=== PATIENT | female | born 1980 | race Caucasian/White ===

== ENCOUNTER 2021-05-21 20:44 | Emergency (ER) | payer OTHER ==
--- NOTE | 2021-05-21 22:31 | ERPHSYRPT ---
- History of Present Illness Time Seen by Provider: 05/21/21 21:59 Source: patient Exam Limitations: no limitations Patient Subjective Stated Complaint: pt state "I just don't feel good." Triage Nursing Assessment: pt ambulated into the er; pt is axo x4; c/o "not feeling well."; c/o cough, chills; pt states she had a fever at home but unsure of tempature because she did not check it; no cough present at assessment; pt states she is coughing of thick yellow sputum; lung sounds clear in all lobes; O2 99% on room air; afebrile at 98.5; clear heart tones; hypertensive Physician History: 40 years old on vaccinated against COVID-19 presented in the ER with 2 days history of flulike symptoms. Patient reports low-grade fever chills, body aches, mild to moderate dry cough without any shortness of breath. No abdominal pain nausea or vomiting. Timing/Duration: day(s) (2), intermittent, gradual onset, worse Cough Quality/Degree: mild, moderate, dry cough Possible Cause: unknown cause Associated Symptoms: fever, chills, cough, headache, lightheadedness, muscle aches, nasal congestion, sore throat Allergies/Adverse Reactions: No Known Drug Allergies Allergy (Unverified 05/21/21 22:03) Home Medications: No Reportable Medications [No Reported Medications] 05/21/21 [History] Hx Tetanus, Diphtheria Vaccination/Date Given: No Hx Influenza Vaccination/Date Given: No Hx Pneumococcal Vaccination/Date Given: No Travel Risk - International Travel Have you traveled outside of the country in past 3 weeks: No - Coronavirus Screening Are you exhibiting any of the following symptoms?: Yes Symptoms: Fever, Cough: New Onset, Shortness of Breath, Headaches/Body Aches/Fatigue Close contact with a COVID-19 positive Pt in past 14-21 Days: No - Vaccine Status Have you recieved a Covid-19 vaccination: No - Review of Systems Constitutional: Fever, Chills, Fatigue, Weakness Eyes: No Symptoms Ears, Nose, & Throat: Nose Congestion Respiratory: Cough Cardiac: No Symptoms Abdominal/Gastrointestinal: No Symptoms Genitourinary Symptoms: No Symptoms Musculoskeletal: No Symptoms Neurological: No Symptoms Psychological: No Symptoms Endocrine: No Symptoms Hematologic/Lymphatic: No Symptoms Immunological/Allergic: No Symptoms - Past Medical History Pertinent Past Medical History: No - Past Surgical History Past Surgical History: Yes Female Surgical History: Tubal Ligation - Social History Smoking Status: Current every day smoker Exposure to second hand smoke: Yes Drug Use: none Patient Lives Alone: No - Female History Hx Now: No - Nursing Vital Signs Nursing Vital Signs: Initial Vital Signs Temperature 98.5 F 05/21/21 22:05 Pulse Rate 94 H 05/21/21 22:05 Respiratory Rate 16 05/21/21 22:05 Blood Pressure 144/93 05/21/21 22:05 O2 Sat by Pulse Oximetry 100 05/21/21 22:05 Pain Scale Pain Intensity 0 - Physical Exam General Appearance: no apparent distress, alert Eye Exam: PERRL/EOMI, eyes nml inspection Ears, Nose, Throat Exam: TMs normal, pharyngeal erythema Neck Exam: normal inspection, non-tender, supple, full range of motion Respiratory Exam: normal breath sounds, lungs clear Cardiovascular Exam: regular rate/rhythm, normal heart sounds Gastrointestinal/Abdomen Exam: soft, normal bowel sounds Back Exam: normal inspection, normal range of motion Extremity Exam: normal inspection, normal range of motion Neurologic Exam: alert, oriented x 3, cooperative Skin Exam: normal color SpO2 Interpretation: normal SpO2: 100 O2 Delivery: Room Air Ordered Tests: Active Orders 24 hr Category Date Time Status CHEST 1 VIEW (PORTABLE) Stat Exams 05/21/21 22:19 Taken - Progress Progress: re-examined Air Movement: good Progress Note: 05/21/21 23:28 Chest x-ray negative for any acute cardiopulmonary findings reviewed by me, official report is pending. Patient is maintaining oxygen saturation around 98% on room air. No signs of distress. Covid testing is obtained. Patient on reevaluation feeling better and does not want to wait for the paperwork. Verbal instructions given about precautions and outpatient follow-up and prompt return to ER for worsening. 05/21/21 23:29 Blood Culture(s) Obtained: No Antibiotics given: No Counseled pt/family regarding: diagnosis, need for follow-up, rad results, smoking cessation - Departure Departure Disposition: Home Clinical Impression: Viral syndrome Condition: Stable Critical Care Time: No Referrals: DOCTOR,NO FAMILY [Primary Care Provider] -
[2021-05-21 23:36] VITALS: BP 123/73; PULSE 88; O2SAT 99
--- NOTE | 2021-05-22 09:03 | XRAY ---
Indication: Suspect Covid 19. Comparison: None Portable chest demonstrates normal heart, lungs, and bony thorax.
== END 2021-05-21 23:37 | disposition home or self-care (01) ==
LOC: ED 20:44
DX: B34.9 Viral infection, unspecified (principal); R50.9 Fever, unspecified; R05 Cough; R51.9 Headache, unspecified; R42 Dizziness and giddiness; R53.83 Other fatigue
CPT/HCPCS: 71045; 99284; U0003

== ENCOUNTER 2021-11-18 20:59 | Emergency (ER) | payer OTHER ==
--- NOTE | 2021-11-18 21:09 | ERPHSYRPT ---
- History of Present Illness Time Seen by Provider: 11/18/21 21:08 Historian: patient Exam Limitations: no limitations Physician History: This is a 41-year-old white female who states that a week ago she was doing a lot of heavy lifting and she feels like she pulled a muscle in her back and abdominal wall. She then stated that she rested for a period of time and then this morning she was playing with her dog and doing yard work where she was lifting bending twisting frequently. She then started having pain in the back and in the abdominal wall as well. She is had no nausea vomiting or diarrhea. 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 She has no known drug allergies. She takes no medications chronically. Timing/Duration: today Quality: aching Abdominal Pain Onset Location: generalized abdomen Pain Radiation: no radiation Severity of Pain-Max: mild (To moderate) Severity of Pain-Current: mild (To moderate) Allergies/Adverse Reactions: No Known Drug Allergies Allergy (Verified 11/18/21 21:17) Hx Tetanus, Diphtheria Vaccination/Date Given: No Hx Influenza Vaccination/Date Given: No Hx Pneumococcal Vaccination/Date Given: No Travel Risk - International Travel Have you traveled outside of the country in past 3 weeks: No - Coronavirus Screening Are you exhibiting any of the following symptoms?: No Close contact with a COVID-19 positive Pt in past 14-21 Days: No - Vaccine Status Have you recieved a Covid-19 vaccination: No - Review of Systems Constitutional: No Symptoms Eyes: No Symptoms Ears, Nose, & Throat: No Symptoms Respiratory: No Symptoms Cardiac: No Symptoms Abdominal/Gastrointestinal: Abdominal Pain (Superficial abdominal wall pain), No Nausea, No Vomiting Genitourinary Symptoms: No Symptoms Musculoskeletal: Other (Abdominal wall pain) Skin: No Symptoms Neurological: No Symptoms Psychological: No Symptoms Endocrine: No Symptoms Hematologic/Lymphatic: No Symptoms Immunological/Allergic: No Symptoms All Other Systems: Reviewed and Negative - Past Medical History Pertinent Past Medical History: No - Past Surgical History Past Surgical History: Yes Female Surgical History: Tubal Ligation - Social History Smoking Status: Current every day smoker Exposure to second hand smoke: Yes Drug Use: none Patient Lives Alone: No - Nursing Vital Signs Nursing Vital Signs: Initial Vital Signs Temperature 98.7 F 11/18/21 21:00 Pulse Rate 120 H 11/18/21 21:00 Respiratory Rate 20 11/18/21 21:00 Blood Pressure 164/120 11/18/21 21:00 O2 Sat by Pulse Oximetry 100 11/18/21 21:00 Pain Scale Pain Intensity 8 - Physical Exam General Appearance: no apparent distress, alert, anxiety Eye Exam: PERRL/EOMI, eyes nml inspection Ears, Nose, Throat Exam: normal ENT inspection, moist mucous membranes Neck Exam: normal inspection, non-tender, supple, full range of motion Respiratory Exam: normal breath sounds, lungs clear, airway intact, No chest tenderness, No respiratory distress Cardiovascular Exam: tachycardia (Mild) Gastrointestinal/Abdomen Exam: soft, normal bowel sounds, tenderness, other (I was able to perform deep palpation without eliciting guarding or rebound), No guarding (Mild to palpation generalized), No rebound Pelvic Exam: not done Rectal Exam: not done Back Exam: normal inspection, normal range of motion, No CVA tenderness, No vertebral tenderness Extremity Exam: normal inspection, normal range of motion, pelvis stable Neurologic Exam: alert, oriented x 3, cooperative, hospice nurse II-XII nml as tested, normal mood/affect, nml cerebellar function, nml station & gait Skin Exam: normal color, warm, dry Lymphatic Exam: No adenopathy SpO2 Interpretation: normal O2 Delivery: Room Air - Course Nursing assessment & vital signs reviewed: Yes - Progress Progress: improved, pain not gone completely Counseled pt/family regarding: diagnosis, need for follow-up - Departure Departure Disposition: Home Clinical Impression: Abdominal wall pain Condition: Stable Critical Care Time: No Referrals: DOCTOR,NO FAMILY [Primary Care Provider] - Follow up/PCP as directed Additional Instructions: Take your medication as prescribed. Follow-up with your primary care provider for further evaluation and management. Stop using methamphetamines Prescriptions: Prednisone 10 mg [Deltasone 10 mg] 10 mg PO TID #12 tablet Orphenadrine Citrate 100 mg [Norflex 100 MG Tablet] 100 mg PO BID #10 tab
[2021-11-18] MEDS ORDERED: solu-MEDROL 125 MG, Sterile H2O 10 ml 2 ML IV ONE ×2 (21:35)
[2021-11-18] MEDS ORDERED: Norflex 60 MG/2 ML IV ONE (21:35)
[2021-11-18] MEDS ORDERED: NORCO 5/325 MG PO ONE (21:35)
[2021-11-18] MEDS ORDERED: Sterile H2O 10 ml IJ ONE (21:41)
[2021-11-18] MEDS ORDERED: Norflex 60 MG/2 ML ONE (21:42)
[2021-11-18] MEDS ORDERED: solu-MEDROL ONE (21:42)
[2021-11-18] MEDS ORDERED: NORCO 5/325 MG ONE (21:42)
[2021-11-18 21:43] VITALS: BP 137/83; PULSE 106; O2SAT 99
== END 2021-11-18 21:55 | disposition home or self-care (01) ==
LOC: ED 20:59
DX: R10.84 Generalized abdominal pain (principal); M54.50 Low back pain, unspecified; Z72.0 Tobacco use; Z79.52 Long term (current) use of systemic steroids
CPT/HCPCS: 36000; 96374; 96375; 99284; J2360; J2930; A9270-GY

== ENCOUNTER 2022-05-26 23:04 | Emergency (ER) | payer OTHER ==
[2022-05-26] MEDS ORDERED: Sodium Chloride 0.9% 1000 ML 1,000 ML IV STA (23:35)
--- NOTE | 2022-05-27 | ERPHSYRPT ---
- History of Present Illness Time Seen by Provider: 05/26/22 23:28 Source: patient Exam Limitations: no limitations Patient Subjective Stated Complaint: pt states she was working in the yard and states that she was moving heavy objects like wood, and has pain in her upper body at this time that she rates as 10/10 Triage Nursing Assessment: pt is alert and oriented, ealled back to room holding abdomen and stating that her whole upper body hurtas and that she overdid it working in her yard, pt is moaning in bed and moving from side to side. Physician History: 41-year-old female presented in ER with chief complaint of generalized body ache fatigue tiredness. Patient reports she was working outside in the yard and she probably overdid it. Patient reports having progressively worsening pain all over especially in the upper body with some nausea. It hurts to move arms legs, back moderate to severe sharp. Timing/Duration: day(s) (2), constant, gradual onset, worse Severity: moderate, severe Modifying Factors: Worsens With: movement Associated Symptoms: nausea, abdominal pain, malaise, No vomiting, No shortness of breath, No heartburn, No diaphoresis, No cough, No chills, No chest pain, No fever, No headaches, No loss of appetite, No syncope, No seizure, No weakness Allergies/Adverse Reactions: No Known Drug Allergies Allergy (Verified 11/18/21 21:17) Hx Tetanus, Diphtheria Vaccination/Date Given: No Hx Influenza Vaccination/Date Given: No Hx Pneumococcal Vaccination/Date Given: No Travel Risk - International Travel Have you traveled outside of the country in past 3 weeks: No - Coronavirus Screening Are you exhibiting any of the following symptoms?: No Close contact with a COVID-19 positive Pt in past 14-21 Days: No - Vaccine Status Have you recieved a Covid-19 vaccination: No - Review of Systems Constitutional: Fatigue, Weakness Eyes: No Symptoms Ears, Nose, & Throat: No Symptoms Respiratory: No Symptoms Cardiac: Chest Pain Abdominal/Gastrointestinal: Abdominal Pain Genitourinary Symptoms: No Symptoms Musculoskeletal: Myalgias Neurological: No Symptoms Psychological: No Symptoms Endocrine: No Symptoms Hematologic/Lymphatic: No Symptoms Immunological/Allergic: No Symptoms - Past Medical History Pertinent Past Medical History: No Neurological History: Migraines ENT History: No Pertinent History Cardiac History: No Pertinent History Respiratory History: No Pertinent History Endocrine Medical History: No Pertinent History Musculoskeletal History: Fibromyalgia GI Medical History: GERD History: No Pertinent History Psycho-Social History: Anxiety, Depression Female Reproductive Disorders: No Pertinent History - Past Surgical History Past Surgical History: Yes Female Surgical History: Tubal Ligation - Social History Smoking Status: Current every day smoker How long have you smoked: 22 yrs Exposure to second hand smoke: Yes Drug Use: none Patient Lives Alone: No - Female History Hx Last Menstrual Period: 05/12/22 Hx Now: No - Nursing Vital Signs Nursing Vital Signs: Initial Vital Signs Temperature 98.3 F 05/26/22 23:13 Pulse Rate 74 05/26/22 23:13 Respiratory Rate 20 05/26/22 23:13 Blood Pressure 178/126 05/26/22 23:13 O2 Sat by Pulse Oximetry 98 05/26/22 23:13 Pain Scale Pain Intensity 5 - Physical Exam General Appearance: no apparent distress, alert Eye Exam: PERRL/EOMI, eyes nml inspection Ears, Nose, Throat Exam: normal ENT inspection, TMs normal, pharynx normal, moist mucous membranes Neck Exam: normal inspection, non-tender, supple, full range of motion Respiratory Exam: normal breath sounds, lungs clear Cardiovascular Exam: regular rate/rhythm, normal heart sounds Gastrointestinal/Abdomen Exam: soft, normal bowel sounds, No tenderness, No distention Back Exam: normal inspection, normal range of motion Extremity Exam: normal inspection, normal range of motion, pelvis stable Neurologic Exam: alert, oriented x 3, cooperative Skin Exam: normal color SpO2 Interpretation: normal SpO2: 98 O2 Delivery: Room Air Ordered Tests: Active Orders 24 hr Category Date Time Status IV Insertion STAT Care 05/26/22 23:35 Active CULTURE,URINE Stat Lab 05/27/22 01:12 Received UA W/RFX CULTURE Stat Lab 05/27/22 01:12 Completed Medication Summary Discontinued Medications Generic Name Dose Route Start Last Admin Trade Name Jeremy PRN Reason Stop Dose Admin Acetaminophen 975 mg 05/27/22 00:04 05/27/22 00:14 Acetaminophen 325 Mg Tablet PO 05/27/22 00:05 975 mg STAT ONE Administration Acetaminophen Confirm 05/27/22 00:13 Acetaminophen 325 Mg Tablet Administered 05/27/22 00:14 Dose 975 mg .ROUTE .STK-MED ONE Cephalexin HCl 500 mg 05/27/22 01:27 05/27/22 01:36 Cephalexin Mh500 Mg Capsule PO 05/27/22 01:28 500 mg STAT ONE Administration Sodium Chloride 1,000 mls @ 999 mls/hr 05/26/22 23:35 05/27/22 00:10 Sodium Chloride 0.9% 1000 Ml IV 05/27/22 00:35 999 mls/hr .Q1H1M STA Administration Sodium Chloride Confirm 05/27/22 00:05 Sodium Chloride 0.9% 1000 Ml Administered 05/27/22 00:06 Dose 1,000 mls @ ud .ROUTE .STK-MED ONE Morphine Sulfate 4 mg 05/27/22 00:04 05/27/22 00:15 Morphine Sulfate 4 Mg/Ml Injection IV 05/27/22 00:05 4 mg STAT ONE Administration Morphine Sulfate Confirm 05/27/22 00:13 Morphine Sulfate 4 Mg/Ml Injection Administered 05/27/22 00:14 Dose 4 mg .ROUTE .STK-MED ONE Ondansetron HCl 4 mg 05/27/22 00:04 05/27/22 00:15 Ondansetron Hcl 4 Mg/2 Ml Vial IV 05/27/22 00:05 4 mg STAT ONE Administration Ondansetron HCl Confirm 05/27/22 00:13 Ondansetron Hcl 4 Mg/2 Ml Vial Administered 05/27/22 00:14 Dose 4 mg .ROUTE .STK-MED ONE Orphenadrine Citrate 60 mg 05/27/22 00:04 05/27/22 00:14 Orphenadrine Citrate 60 Mg/2 Ml Vial IV 05/27/22 00:05 60 mg STAT ONE Administration Orphenadrine Citrate Confirm 05/27/22 00:13 Orphenadrine Citrate 60 Mg/2 Ml Vial Administered 05/27/22 00:14 Dose 60 mg .ROUTE .STK-MED ONE Lab/Rad Data: Laboratory Result Diagrams 05/26/22 00:09 05/26/22 00:09 Laboratory Results 05/27/22 05/26/22 05/26/22 Range/Units 01:12 00:09 00:09 WBC 13.3 H (4.0-10.5) x10^3/uL RBC 5.01 (4.1-5.4) x10^6/uL Hgb 15.0 (12.0-16.0) g/dL Hct 46.0 (35-47) % MCV 91.8 (78-100) fL MCH 29.9 (26-32) pg MCHC 32.6 (32-36) g/dL RDW 12.7 (11.5-14.0) % Plt Count 387 (150-450) x10^3/uL MPV 8.2 (7.5-11.0) fL Gran % 79.0 H (36.0-66.0) % Immature Gran % (Auto) 0.2 (0.00-0.4) % Nucleat RBC Rel Count 0.0 (0.00-0.1) % Eos # (Auto) 0.06 (0-0.5) x10^3/uL Immature Gran # (Auto) 0.03 (0.00-0.03) x10^3u/L Absolute Lymphs (auto) 1.82 (1.0-4.6) x10^3/uL Absolute Monos (auto) 0.81 (0.0-1.3) x10^3/uL Absolute Nucleated RBC 0.00 (0.00-0.01) x10^3u/L Lymphocytes % 13.7 L (24.0-44.0) % Monocytes % 6.1 (0.0-12.0) % Eosinophils % 0.5 (0.00-5.0) % Basophils % 0.5 (0.0-0.4) % Absolute Granulocytes 10.54 H (1.4-6.9) x10^3/uL Basophils # 0.07 (0-0.4) x10^3/uL Sodium 139 (137-145) mmol/L Potassium 3.8 (3.5-5.1) mmol/L Chloride 104 (98-107) mmol/L Carbon Dioxide 24 (22-30) mmol/L Anion Gap 15.0 (5-15) MEQ/L BUN 14 (7-17) mg/dL Creatinine 0.87 (0.52-1.04) mg/dL Estimated GFR > 60.0 ML/MIN Glucose 124 H (74-106) mg/dL Calcium 10.1 (8.4-10.2) mg/dL Total Bilirubin 0.80 (0.2-1.3) mg/dL AST 24 (14-36) U/L ALT 18 (0-35) U/L Alkaline Phosphatase 94 (38-126) U/L Creatine Kinase 59 (30-135) U/L Serum Total Protein 8.4 H (6.3-8.2) g/dL Albumin 4.8 (3.5-5.0) g/dL Urinalys Dipstick Clnc MAIN LAB Urine Color DARK YELLOW (YELLOW) Urine Appearance SLIGHTLY CLOUDY (CLEAR) Urine pH 6.0 (5-6) Ur Specific Gray 1.025 (1.005-1.025) POC Urine Protein Conf 100 (Negative) Urine Ketones NEGATIVE (NEGATIVE) Urine Nitrite POSITIVE (NEGATIVE) Urine Bilirubin NEGATIVE (NEGATIVE) Urine Urobilinogen 0.2 (0-1) mg/dL Urine Leukocytes SMALL (NEGATIVE) Urine WBC (Auto) 16-25 (0-5) /HPF Urine RBC (Auto) 6-10 (0-2) /HPF U Epithel Cells (Auto) RARE (FEW) /HPF Urine Bacteria (Auto) PACKED (NEGATIVE) /HPF Urine RBC SMALL (0-5) Herb/ul Urine Mucus (Auto) MANY (NEGATIVE) /HPF Ur Culture Indicated? YES Urine Glucose NEGATIVE (NEGATIVE) mg/dL - Progress Progress: improved Progress Note: 05/27/22 01:28 She is given fluids and symptomatic treatment, on reevaluation feeling better. Has a white count of 13, grossly unremarkable chemistries. Does have UTI and started on Keflex. Patient does not have rhabdo. Recommended Tylenol/ibuprofen to go home and outpatient follow-up. Discussed signs symptoms of worsening needing return to ER which he seems understanding. Stable for discharge. Counseled pt/family regarding: lab results, diagnosis, need for follow-up - Departure Departure Disposition: Home Clinical Impression: Myalgia, Generalized body aches, Acute UTI Condition: Stable Critical Care Time: No Referrals: DOCTOR,NO FAMILY [Primary Care Provider] - Follow up/PCP as directed JENNYFER WINCHESTER DO [ACTIVE STAFF] - Follow Up with PCP/3 days Instructions: Muscle and Bone Pain (DC) Additional Instructions: Drink plenty of fluids. Take Tylenol as needed. Follow-up with primary care for reevaluation. Return to ER for any worsening. Prescriptions: Ibuprofen 600 mg PO Q6HPRN PRN 10 Days #20 tablet PRN Reason: Pain Cephalexin Mh 500 mg [Keflex 500 mg] 500 mg PO TID #21 cap
[2022-05-27] MEDS ORDERED: TYLENOL 325 MG PO ONE (00:04)
[2022-05-27] MEDS ORDERED: Norflex 60 MG/2 ML IV ONE (00:04)
[2022-05-27] MEDS ORDERED: Zofran 4 MG/2 ML VIAL IV ONE (00:04)
[2022-05-27] MEDS ORDERED: MORPHINE SULFATE 4 MG INJ IV ONE (00:04)
[2022-05-27] MEDS ORDERED: Sodium Chloride 0.9% 1000 ML 1,000 ML ONE (00:05)
[2022-05-27 00:11] LABS: Absolute Neutrophil Ct (ANC) 10.54 x10^3/uL (1.4-6.9); Basophil (Absolute #) 0.07 x10^3/uL (0-0.4); Eosinophil % 0.5 % (0.00-5.0); Eosinophil (Absolute #) 0.06 x10^3/uL (0-0.5); Lymphocyte (Absolute #) 1.82 x10^3/uL (1.0-4.6); Lymphocytes % 13.7 % (24.0-44.0); Mean Cell Volume 91.8 fL (78-100); Mean Corpuscular Hemoglobin 29.9 pg (26-32); Mean Corpuscular Hgb Concent. 32.6 g/dL (32-36); Mean Platelet Volume 8.2 fL (7.5-11.0); Monocyte (Absolute #) 0.81 x10^3/uL (0.0-1.3); Monocytes % 6.1 % (0.0-12.0); Platelet Count 387 x10^3/uL (150-450); Red Blood Count 5.01 x10^6/uL (4.1-5.4); Red Cell Distribution Width 12.7 % (11.5-14.0); White Blood Count 13.3 x10^3/uL (4.0-10.5)
[2022-05-27] MEDS ORDERED: Norflex 60 MG/2 ML ONE (00:13)
[2022-05-27] MEDS ORDERED: TYLENOL 325 MG ONE (00:13)
[2022-05-27] MEDS ORDERED: Zofran 4 MG/2 ML VIAL ONE (00:13)
[2022-05-27] MEDS ORDERED: MORPHINE SULFATE 4 MG INJ ONE (00:13)
[2022-05-27 00:41] LABS: ALBUMIN 4.8 g/dL (3.5-5.0); ALKALINE PHOSPHATASE 94 U/L (38-126); BLOOD UREA NITROGEN 14 mg/dL (7-17); CHLORIDE 104 mmol/L (98-107); CK-Creatinine Phosphokinase 59 U/L (30-135); Calcium 10.1 mg/dL (8.4-10.2); Carbon Dioxide 24 mmol/L (22-30); Creatinine 1 0.87 mg/dL (0.52-1.04); EST GLOMERULAR FILTRATION RATE > 60.0 ML/MIN; Glucose 124 mg/dL (74-106); Potassium 3.8 mmol/L (3.5-5.1); SGOT/AST 24 U/L (14-36); SGPT/ALT 18 U/L (0-35); SODIUM 139 mmol/L (137-145); Total Protein 8.4 g/dL (6.3-8.2)
[2022-05-27 01:05] VITALS: BP 206/137; PULSE 99
[2022-05-27 01:22] LABS: Appearance SLIGHTLY CLOUDY (CLEAR); Bilirubin NEGATIVE (NEGATIVE); Glucose NEGATIVE (NEGATIVE); Ketones NEGATIVE (NEGATIVE); Nitrite POSITIVE (NEGATIVE); Protein,Urine Dip 100 (Negative); RBC SMALL Ery/ul (0-5); Specific Gravity 1.025 (1.005-1.025); Urobilinogen 0.2 mg/dL (0-1)
[2022-05-27 01:23] LABS: Dipstick done @ ? MAIN LAB
[2022-05-27 01:24] LABS: Bacteria PACKED /HPF (NEGATIVE); Epithelial Cells RARE /HPF (FEW); Mucus MANY /HPF (NEGATIVE); Urine Cultured Indicated? YES
[2022-05-27] MEDS ORDERED: KEFLEX 500 MG PO ONE (01:27)
[2022-05-27 01:29] VITALS: O2SAT 98
[2022-05-27] MEDS ORDERED: KEFLEX 500 MG ONE (01:35)
[2022-05-27] MEDS ORDERED: MOTRIN 600 MG PO ONE (01:37)
[2022-05-27] MEDS ORDERED: MOTRIN 600 MG ONE (01:38)
== END 2022-05-27 01:50 | disposition home or self-care (01) ==
LOC: ED 23:04
DX: N39.0 Urinary tract infection, site not specified (principal); M79.10 Myalgia, unspecified site; R53.83 Other fatigue; R11.0 Nausea; Z72.0 Tobacco use; Z28.310 Unvaccinated for COVID-19
CPT/HCPCS: 36000; 36415; 80053; 81015; 82550; 85025; 87077; 87086; 87186; 96360; 96374; 96375; 99284; J2270; J2360; J2405; A9270-GY

== ENCOUNTER 2024-10-26 12:28 | Emergency (ER) | payer OTHER ==
[2024-10-26 12:38] VITALS: RESP 22; TEMP 98.1
--- NOTE | 2024-10-26 12:59 | ERPHSYRPT ---
- History of Present Illness Time Seen by Provider: 10/26/24 12:36 Source: patient Exam Limitations: no limitations Patient Subjective Stated Complaint: Pt states "I was taking care of a family member yesterday who was sick and now he gave it to me. I have a cough, fever, my legs hurt." Triage Nursing Assessment: Pt presnted alert and oriented X 3, skin pwd. Pt ambulates with an upright steady gait, able to speak in clear full sentences. Pt resting comfortably on the bed. Physician History: 44-year-old with history of tobacco use presented in the ER with flulike symptoms since this morning. Patient reports her son had similar symptoms yesterday. Patient reports minimal productive cough, aches and pains all over, subjective feeling of fever and chills. Feeling fatigued tired. No abdominal pain nausea or vomiting. Allergies/Adverse Reactions: No Known Drug Allergies Allergy (Verified 11/18/21 21:17) Home Medications: No Reportable Medications [No Reported Medications] 10/26/24 [History] Hx Tetanus, Diphtheria Vaccination/Date Given: No Hx Influenza Vaccination/Date Given: No Hx Pneumococcal Vaccination/Date Given: No Immunizations Up to Date: No Travel Risk - International Travel Have you traveled outside of the country in past 3 weeks: No - Emerging Infectious Disease Are you exhibiting symptoms associated with any current EIDs: Yes Symptoms: Cough: New Onset, Headaches/Body Aches/ - Review of Systems Constitutional: Fever, Fatigue, Weakness Eyes: No Symptoms Ears, Nose, & Throat: No Symptoms Respiratory: Cough Cardiac: No Symptoms Abdominal/Gastrointestinal: No Symptoms Genitourinary Symptoms: No Symptoms Musculoskeletal: Myalgias Skin: No Symptoms Neurological: Headache Psychological: No Symptoms Endocrine: No Symptoms - Past Medical History Pertinent Past Medical History: Yes Neurological History: Migraines ENT History: No Pertinent History Cardiac History: No Pertinent History Respiratory History: No Pertinent History Endocrine Medical History: No Pertinent History Musculoskeletal History: Fibromyalgia GI Medical History: GERD History: No Pertinent History Psycho-Social History: Anxiety, Depression Female Reproductive Disorders: No Pertinent History - Past Surgical History Past Surgical History: Yes Gastrointestinal: Cholecystectomy Female Surgical History: Tubal Ligation - Female History Hx Last Menstrual Period: 10/05/2024 Hx Now: No - Social History Smoking Status: Current every day smoker How long have you smoked: 22 yrs Exposure to second hand smoke: Yes Drug Use: none Patient Lives Alone: No - Social Determinants of Health Will the patient participate in the screening: Yes Do you worry about a steady place to live?: Yes Do you have any problems with any of the following?: No known problems In the past 12 months,have you had to go without utilities?: No Transportation Issues: Yes Has anyone in your support network made you feel unsafe?: No Have you or anyone in your house had to go without enough: No - Nursing Vital Signs Nursing Vital Signs: Initial Vital Signs Temperature 98.1 F 10/26/24 12:32 Pulse Rate 99 H 10/26/24 12:32 Respiratory Rate 22 10/26/24 12:32 Blood Pressure 149/101 10/26/24 12:32 O2 Sat by Pulse Oximetry 98 10/26/24 12:32 Pain Scale Pain Intensity 7 - Physical Exam General Appearance: no apparent distress Eye Exam: PERRL/EOMI Ears, Nose, Throat Exam: normal ENT inspection Neck Exam: normal inspection, non-tender, supple, full range of motion, No meningismus Respiratory Exam: normal breath sounds, lungs clear Cardiovascular Exam: regular rate/rhythm, normal heart sounds Gastrointestinal/Abdomen Exam: soft, normal bowel sounds, No tenderness Back Exam: normal inspection, normal range of motion Extremity Exam: normal inspection, normal range of motion Neurologic Exam: alert, oriented x 3, cooperative, food service II-XII nml as tested Skin Exam: normal color SpO2 Interpretation: normal SpO2: 98 O2 Delivery: Room Air Ordered Tests: Active Orders 24 hr Category Date Time Status CHEST 1 VIEW (PORTABLE) Stat Exams 10/26/24 12:56 Completed Medication Summary Discontinued Medications Generic Name Dose Route Start Last Admin Trade Name Skylerq PRN Reason Stop Dose Admin Ketorolac Tromethamine 30 mg 10/26/24 12:56 10/26/24 13:10 Ketorolac Tromethamine 30 Mg/Ml Inj IM 10/26/24 12:57 30 mg STAT ONE Administration Ketorolac Tromethamine Confirm 10/26/24 13:09 Ketorolac Tromethamine 30 Mg/Ml Inj Administered 10/26/24 13:10 Dose 30 mg .ROUTE .STK-MED ONE Lab/Rad Data: Laboratory Results 10/26/24 Range/Units 13:25 Influenza Type A Ag NEGATIVE (NEGATIVE) Influenza Type B Ag NEGATIVE (NEGATIVE) RSV (PCR) NEGATIVE (NEGATIVE) SARS-CoV-2 (PCR) NEGATIVE (NEGATIVE) - Progress Progress: improved, re-examined Air Movement: good Progress Note: 10/26/24 14:26 44-year-old is evaluated in the ER for flulike symptoms with cough congestion, body aches. Patient is not in any distress. Lungs fairly clear to auscultation. Chest x-ray is negative. Given Toradol for symptomatic relief and feeling much better on reevaluation. As negative flu COVID and RSV. I believe patient's symptoms are viral etiology, recommended supportive care and outpatient follow-up. Discussed signs symptoms of worsening needing return to ER which she seems understanding. Stable for discharge. Blood Culture(s) Obtained: No Antibiotics given: No Counseled pt/family regarding: lab results, diagnosis, need for follow-up, rad results Medical Desision Making - Diagnostic Testing Radiological Interpretation: Reviewed by me - Risk of complications The pt has a mod risk of morbidity or mortality based on: Need for prescription drug management - Departure Departure Disposition: Home Clinical Impression: Viral syndrome Condition: Stable Critical Care Time: No Referrals: DOCTOR,NO FAMILY [Primary Care Provider] - Follow up with PCP 1 day Instructions: Cough, Adult (DC) Additional Instructions: Take Tylenol/ibuprofen as needed. Follow-up with primary care for reevaluation. Return to ER for any worsening.
[2024-10-26 13:08] VITALS: PULSE 104
[2024-10-26] MEDS ORDERED: TORAdol 30 mg Injection ONE (13:09)
[2024-10-26] MEDS: TORAdol 30 mg Injection IM ONE (13:10)
--- NOTE | 2024-10-26 13:43 | XRAY ---
Indication: Cough. Comparison: May 21, 2021 Portable chest again demonstrates normal heart and lungs with incidental left mid lung calcified granuloma. Bony thorax intact. No new/acute findings.
[2024-10-26 14:04] VITALS: BP 154/94
[2024-10-26 14:07] LABS: INFLUENZA A NEGATIVE (NEGATIVE); INFLUENZA B NEGATIVE (NEGATIVE); RESPIRATORY SYNCTIAL VIRUS NEGATIVE (NEGATIVE); SARS-CoV-2 Xpert Express NEGATIVE (NEGATIVE)
[2024-10-26 14:28] VITALS: O2SAT 98
== END 2024-10-26 15:11 | disposition home or self-care (01) ==
LOC: ED 12:28
DX: B34.9 Viral infection, unspecified (principal); R05.1 Acute cough; M79.10 Myalgia, unspecified site; R53.83 Other fatigue; Z72.0 Tobacco use; Z59.819 Housing instability, housed unspecified; Z59.82 Transportation insecurity
CPT/HCPCS: 0241U; 71045; 96372; 99284; 99283; J1885